=== PATIENT | female | born 1970 | race Caucasian/White ===

== ENCOUNTER 2022-04-06 07:01 | Inpatient (IN) ==
[2022-04-02 12:38] LABS: Basophils # (Auto) 0.05 K/mcL (0.00-0.30); Eosinophils # (Auto) 0.25 K/mcL (0.00-0.70); Hematocrit 32.9 % (34.1-44.9); Hemoglobin 10.3 g/dL (11.2-15.7); Lymphocytes # (Auto) 1.52 K/mcL (1.50-4.80); Lymphocytes % (Auto) 30.2 % (15.5-49.0); Mean Corpuscular HGB Conc 31.3 g/dL (31.0-36.0); Mean Platelet Volume 9.8 fL (7.4-10.4); Monocytes # (Auto) 0.52 K/mcL (0.10-0.90); Monocytes % (Auto) 10.3 % (1.0-12.0); Neutrophils % (Auto) 53.5 % (38.0-78.0); Platelet Count 290 K/mcL (140-440); RBC 4.01 M/mcL (3.59-5.38); Red Cell Distribution Width 15.9 % (11.5-14.5)
[2022-04-02 13:09] LABS: Blood Urea Nitrogen 14 mg/dL (6-20); Calcium 10.2 mg/dL (8.6-10.4); Carbon Dioxide 25 mmol/L (22-30); Chloride 104 mmol/L (96-108); Glomerular Filtration Rate 85; Glucose 123 mg/dL (70-105)
[2022-04-02 14:59] LABS: HCG,Serum Negative
--- NOTE | 2022-04-05 20:41 | EKG ---
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
[~2022-04-06 07:01] MED LIST: PIPERACILLIN SODIUM/TAZOBACTAM 3.375 GM in DEXTROSE 5% IN WATER 50 ML IV SCH
--- OUTSIDE RECORDS SUMMARY | 2022-04-06 07:04 | External Medical Summary ---
:1970 Author Care Team Providers Name Role Phone RASHARD SMART TYRESE Dentist [phone] PRISCA GALVAN Primary Care Provider [phone] Allergies Code Code System Name Reaction Severity Status Onset [id number] RxNorm Latex Hives Active Sulfa (Sulfonamide Other Active Antibiotics) Medications Name Status Start Date Stop Date amoxicillin 875 mg-potassium clavulanate 125 mg tablet Active Not available TAKE 1 TABLET BY MOUTH TWICE DAILY aspirin Active Not available 81 mg one tab daily aspirin 81 mg tablet,delayed release Active Not available atorvastatin Completed 12/22/2021 atorvastatin 10 mg tablet Active Not av ailable diclofenac 3 % topical gel Active Not a vailable docusate sodium 100 mg capsule Active N ot available TAKE 1 CAPSULE BY MOUTH ONCE DAILY Effexor XR Completed 12/22/2021 225 mg one tab daily gabapentin 300 mg capsule Completed 2021 hydrocortisone-acetic acid 1 %-2 % ear drops Active Not available hydroxyzine pamoate 50 mg capsule Active Not available lidocaine 5 % topical ointment Active N ot available lidocaine 5 % topical patch Active Not available lisinopril Completed 12/22/2021 10 mg one tab daily lisinopril 10 mg tablet Active Not avai lable lorazepam 1 mg tablet Active Not availa ble M- Plus 27 mg iron-1 mg tablet Active Not available Multiple Vitamins tablet Active Not charles ilable Take 1 tablet every day by oral route. omeprazole Completed 12/22/2021 40 mg one tab twice a day omeprazole 40 mg capsule,delayed release Active Not available ondansetron 4 mg disintegrating tablet Active Not available ondansetron HCl 4 mg tablet Active Not available oxybutynin chloride ER 5 mg tablet,extended release 24 hr Active Not available TAKE 1 TABLET BY MOUTH EVERY DAY ProAir HFA 90 mcg/actuation aerosol inhaler Active Not available Inhale 2 puffs every 4 hours by inhalation route. tramadol 50 mg tablet Active Not availa ble TAKE 1 TABLET BY MOUTH EVERY 8 HOURS NEEDED FOR PAIN trazodone 50 mg tablet Active Not avail able triamcinolone acetonide 0.05 % topical ointment Active Not available triamcinolone acetonide 0.5 % topical ointment Active Not available venlafaxine ER 150 mg capsule,extended release 24 hr Active Not available TAKE 1 CAPSULE BY MOUTH EVERY DAY venlafaxine ER 75 mg capsule,extended release 24 hr Active Not available Notes: 12/22/21 Meds verbally verified with pt/ AN Problems Name Status Onset Date Source Polyarthropathy Active 02/11/2022 Low Back Pain Active 02/11/2022 Procedures Date Name Performed by 03/05/2022 Appendectomy Information not avai lable 03/05/2022 Colonoscopy Information not avai lable Notes: 07/05/2001 Delivery Information not avai lable 12/18/2021 MAMMO, Screening, [facility] [address] [place] [address] [phone] (Work Place) Results Lab Results Date Name Specimen Result Interpretation Description Value Range Status Address 12/22/2021 Lipid Blood High Cholesterol, 264 mg/dL <200 Fin al [facility], venous Total mg/dL Diagnostic s Serum - [place] [facility]: [address] [place] [address] Blood Normal HDL 127 mg/dL > or = Final [facility] venous Cholesterol 50 Diagn ostics mg/dL - [place] [facility]: [address] [place] [address] Blood Normal Triglycerides 128 mg/dL <150 Final [facility] venous mg/dL Diagnostic [facility]: [address] [place] [address] Blood High LDL-cholestero 113 mg/dL Final [facility] venous l (calc) Diagnostic [facility] Lab: [address] [place] [address] Blood Normal Chol/hdlc 2.1 <5.0 Final [facility] venous Ratio (calc) (calc) Diagnostic [facility] Lab: [address] [place] [address] Blood High Non HDL 137 mg/dL <130 Final [facility] venous Cholesterol (calc) mg/dL Diagn ostics (calc) - [place] [facility]: [address] [place] [address] 12/22/2021 CMP, Serum Blood Normal Glucose 84 mg/dL 65-99 Final [facility] or Plasma venous mg/dL Diagnos tics - [place] [facility]: [address] [place] [address] Blood Normal Urea Nitrogen 14 mg/dL 7-25 Final [facility] venous (BUN) mg/dL Diagnostic s - [place] [facility]: [address] [place] [address] Blood Normal Creatinine 0.80 0.50-1 Final [facility] venous mg/dL .05 Diagnostic s mg/dL - [place] [facility]: [address] [place] [address] Blood Normal eGFR Non-afr. 85 > or = Final Qu est venous Nigerian mL/min/1. 60 Diagn ostics 73m2 mL/min - [place] /1.73m Lab: [facility] Blood Normal eGFR 99 > or = Final Que st venous Nigerian mL/min/1. 60 Diagn ostics 73m2 mL/min - [place] /1.73m Lab: [address] [place] [address] Blood BUN/creatinine not 6-22 Final Q uest venous Ratio applicabl (calc) Diagnos tics e (calc) - [place] [facility]: [address] [place] [address] Blood Normal Sodium 139 135-14 Final [facility] venous mmol/L 6 Diagnostic s mmol/L - [place] [facility]: [address] [place] [address] Blood Normal Potassium 4.7 3.5-5. Final [facility] venous mmol/L 3 Diagnostic s mmol/L - [place] [facility]: [address] [place] [address] Blood Normal Chloride 100 98-110 Final [facility] venous mmol/L mmol/L Diagnostic [facility] Lab: [address] [place] [address] Blood Normal Carbon Dioxide 30 mmol/L 20-32 Final [facility] venous mmol/L Diagnostic [facility] Lab: [address] [place] [address] Blood High Calcium 10.5 8.6-10 Final [facility] venous mg/dL .4 Diagnostic s mg/dL - [place] [facility]: [address] [place] [address] Blood Normal Protein, Total 8.0 g/dL 6.1-8. Final [facility] venous 1 g/dL Diagnostic s [facility] Lab: [address] [place] [address] Blood Normal Albumin 4.6 g/dL 3.6-5. Final [facility] venous 1 g/dL Diagnostic [facility] Lab: [address] [place] [address] Blood Normal Globulin 3.4 g/dL 1.9-3. Final [facility] venous (calc) 7 g/dL Diagnostic s (calc) - [place] [facility]: [address] [place] [address] Blood Normal Albumin/globul 1.4 1.0-2. Final Q uest venous in Ratio (calc) 5 Diagnost ics (calc) - [place] [facility]: [address] [place] [address] Blood Normal Bilirubin, 0.2 mg/dL 0.2-1. Final Qu est venous Total 2 Diagnostic s mg/dL - [place] [facility]: [address] [place] [address] Blood Normal Alkaline 52 U/L 37-153 Final [facility] venous Phosphatase U/L Diagn ostics - [place] [facility]: [address] [place] [address] Blood Normal Ast 29 U/L 10-35 Final [facility] venous U/L Diagnostic s [facility] Lab: [address] [place] [address] Blood Normal Alt 18 U/L 6-29 Final [facility] venous U/L Diagnostic s [facility] Lab: [address] [place] [address] 12/22/2021 CBC W/ Auto Blood Normal White Blood 6.7 3.8-10 Fi nal [facility] Diff venous Cell Count thousand/ .8 [facility] uL thousa [facility] nd/uL Lab: [address] [place] [address] Blood Normal Red Blood Cell 4.19 3.80-5 Final Q uest venous Count million/u .10 Diagnos tics L Located within [facility] n/uL Lab: [address] [place] [address] Blood Low Hemoglobin 11.3 g/dL 11.7-1 Final Qu est venous 5.5 Diagnostic s g/dL [facility] Lab: [address] [place] [address] Blood Normal Hematocrit 35.1 % 35.0-4 Final [facility] venous 5.0 % Diagnostic [facility] Lab: [address] [place] [address] Blood Normal Mcv 83.8 fL 80.0-1 Final [facility] venous 00.0 Diagnostic s fL [facility] Lab: [address] [place] [address] Blood Normal Mch 27.0 pg 27.0-3 Final [facility] venous 3.0 pg Diagnostic s [facility] Lab: [address] [place] [address] Blood Normal Mchc 32.2 g/dL 32.0-3 Final [facility] venous 6.0 Diagnostic s g/dL - [place] [facility]: [address] [place] [address] Blood High Rdw 16.3 % 11.0-1 Final [facility] venous 5.0 % Diagnostic s [facility] Lab: [address] [place] [address] Blood Normal Platelet Count 301 140-40 Final Q uest venous thousand/ 0 Diagnos tics uL thousa [facility] nd/uL Lab: [address] [place] [address] Blood Normal Mpv 10.4 fL 7.5-12 Final [facility] venous .5 fL Diagnostic [facility] Lab: [address] [place] [address] Blood Normal Absolute 3980 1500-7 Final [facility] venous Neutrophils cells/uL 800 [facility] cells/ - [place] uL Lab: [address] [place] [address] Blood Normal Absolute 1568 850-39 Final [facility] venous Lymphocytes cells/uL 00 [facility] cells/ - [place] u[facility] Lab: [address] [place] [address] Blood Normal Absolute 824 200-95 Final [facility] venous Monocytes cells/uL 0 Diagn ostics cells/ - [place] uL Lab: [address] [place] [address] Blood Normal Absolute 281 15-500 Final [facility] venous Eosinophils cells/uL cells/ [facility] gnostics [facility] Lab: [address] [place] [address] Blood Normal Absolute 47 0-200 Final [facility] venous Basophils cells/uL cells/ Diagn ostics [facility] Lab: [address] [place] [address] Blood Normal Neutrophils 59.4 % Final Ques t venous Diagnostic [facility] Lab: [address] [facility] Blood Normal Lymphocytes 23.4 % Final Ques t venous Diagnostic [facility] Lab: [address] [place] [address] Blood Normal Monocytes 12.3 % Final [facility] venous Diagnostic [facility] Lab: [address] [place] [address] Blood Normal Eosinophils 4.2 % Final Ques t venous Diagnostic [facility] Lab: [address] [place] [address] Blood Normal Basophils 0.7 % Final [facility] venous Diagnostic [facility] Lab: [address] [place] [address] 12/22/2021 Pap, LB + Cervix [employer]isc [employer] yte HPV Diagnostic s [facility], Anatomic Pathology Lab: [address], [place] Cervix Ppap Incyte Diagnostic s - [place], Anatomic Pathology Lab: [address], [place] Cervix Spec Incyte Diagnostic s [facility], [facility] Lab: [address], [place] Cervix Ln Incyte Diagnostic s - [place], Anatomic Pathology Lab: [address], [place] Cervix Apfdx Incyte Diagnostic s - [place], Anatomic Pathology Lab: [address], [place] Cervix Apmpr Incyte Diagnostic s - [place], Anatomic Pathology Lab: [address], [place] Cervix Aptech Incyte Diagnostic s - [place], Anatomic Pathology Lab: [address], [place] Cervix Apspa Incyte Diagnostic s - [place], Anatomic Pathology Lab: [address], [place] Cervix Apadn Incyte Diagnostic s - [place], Anatomic Pathology Lab: [address], [place] Cervix Applab Incyte Diagnostic s - [place], Anatomic Pathology Lab: [address], [place] Cervix Apsig Incyte Diagnostic s - [place], Anatomic Pathology Lab: [address], [place] 12/18/2021 Alcohol Use Women (18-65) 1 or More Norman And Disorders How Many Times [facility] Identificat in the past Center: Fernando ion Test* Year Have You Health 1203 Had 4 or More Ayanna ho Drinks in a Stree t, Day? Gilbert AU1. How Often [4 L ewis And Do You Have a points] 4 [facility] Drink or more Center: C has Containing times a Healt h 1203 Alcohol? week [place] Gilbert Hoffman AU2. How Many [3 Le wis And Drinks points] 7 [facility] Containing to 9 Center : Fernando Alcohol Do You He alth 1203 Have on a [place] Typical Day Stree t, When You Are Lewi ston Drinking? AU3. How Often [4 L ewis And Do You Have 5 points] Cl [facility] or More Drinks Daily or Center: Fernando on One [facility] Health 120 3 Occasion? daily [place] Gilbert Hoffman AU4. Have You [4 Le wis And Found That You points] C [facility] Neul Were Not Able Daily or C enter: Fernando to Stop almost Health 12 03 Drinking Once daily Ayanna ho You Had Street, Started? Gilbert AU5. Have You [4 Le wis And Failed to Do points] [facility] What Was Daily or Center : Fernando Normally almost Health 1 203 Expected from daily Ayanna ho You Because of St reet, Drinking? Emerson n AU6. Needed a [4 Le wis And 1St Drink in points] [facility] the Morning to Daily or Center: Fernando Get Yourself almost Heal 1203 Going after a daily Ayanna ho Heavy Drinking St reet, Session? Gilbert AU7. Have You [4 Le wis And Had a Feeling points] [facility] of Guilt or Daily or Jamir ter: Fernando Remorse after almost Hea lth 1203 Drinking? daily [place] Gilbert Hoffman AU8. Have You [0 Le wis And Been Unable to points] [facility] Remember What Never Jamir ter: Fernando Happened the Heal 1203 Night before Idah o Because of Your S treet, Drinking? Emerson lopez AU9. Have You [0 Le wis And or Someone Else points] [facility] Been Injured No Cent er: Fernando Because of Your H ealth 1203 Drinking? [place] Gilbert Hoffman AU10. Has a [4 Lewi s And Relative, points] [facility] Friend, Doctor, Yes, C enter: Fernando or Healthcare during Hea lth 1203 Worker Been the last Ayanna ho Concerned or year Stre et, Suggested You Garth bolton Cut Down? Total Points 27 Garth is And (Must Be [facility] alth Manually Center: [facility] Calculated Health 1203 Using Points Idah o from Questions St reet, AU1-AU10 Only) Melisa lópez Guideline for 20-40 Le wis And Interpretation Points - [facility] Zone IV - Center: [facility] Severe - Health 1 203 Brief [facility] shaun Hoffman plus Gilbert referral to chemical dependenc y treatment 12/18/2021 Substance Q1: past 3 [0 Norman And Abuse Months, Overuse points] [facility] Screening* of Prescribed No Center: [facility] Opioids Health 12 03 Gilbert Chatman Q2: past 3 [0 Norman And Months, Use of points] [facility] Any Opioids NOT No C enter: [facility] Prescribed Health 1203 Gilbert Chatman Scoring (a [0] No Norman And Positive Score Cl [facility] Health Is > 0): Center: [facility] Health 120 3 Gilbret Chatman Past Encounters 03/24/2022 [place] Pe[place]ock [facility]: [address] [facility] [place] [address], Ph. 02/11/2022 Low Back Pain; Spasm; Polyarthropathy; A lcohol Dependence; Anxiety; Tobacco Dependence Syndrome PRISCA Galvan: [facility] [place] [address], Ph. 12/22/2021 Gynecologic Examination; Dyslipidemia; E ssential Hypertension; Mixed Anxiety and Depressive Disorder; Urinary Incontinence; Tobacco Dependence Syndrome PRISCA Galvan: [facility] [place] [address], Ph. 12/18/2021 Schwartz's Esophagus; Asthma; Eczema; Ski n Lesion; Alcohol Dependence; Tobacco Dependence Syndrome; Active or Passive Immunization; Screening for Malignant Neoplasm of Breast PRISCA Galvan: [address] [place] [address], Ph. 12/18/2021 Screening Procedure; Diabetes Mellitus S creening; Alcohol Consumption Screening; Screening for Malignant Neoplasm of Colon; Screening Due; Screening Mammography; Active or Passive Immunization; Hepatiti s C Screening Declined; Body Mass Index 20-24 - Normal; Low Income; Tobacco Dependence Syndrome; HIV Screening Declined Kristin Ramos RN: [address] [place] [address], [place] [address], Ph. 12/08/2021 Rashard Smart DDS: [address] [place] [phone], Ph. Social History Tobacco Smoking Status Heavy Tobacco Smoker (1 pack per day) Vaccine List Vaccine Type COVID-19 vaccine, vector-nr, rS-Ad26, PF , 0.5 mL (Studio[employer]) .5 influenza, injectable, quadrivalent, pre servative free .5 influenza, recombinant, quadrIvalent,inj ectable, preservative free .5 influenza, seasonal, injectable 09/13/2007 pneumococcal polysaccharide PPV23 .5 mL Tdap 09/13/2007.5 06/08/2020 zoster recombinant .5 Plan of Care Patient Instructions [place] and floss 2-3 times daily Eat a balanced diet Limit soda/sports drinks consumption to lower your risk of tooth decay Recommend desensitizing toothpaste for s ensitivity Recommend OTC fluoride rinse (ACT or oth ers) Use a soft bristle toothbrush Follow up with your hygienist Reminders Provider Appointments None recorded. Lab None recorded. Referral None recorded. Procedures None recorded. Surgeries None recorded. Imaging None recorded. Vitals 02/11/2022 03:20PM Office Visit 20 Height Weight BMI Blood Pressure 5 ft 8.6 in 163 lbs 24.4 kg/m2 136/78 mm[Hg] 12/22/2021 08:40AM Office Visit 20 Height Weight BMI Blood Pressure 5 ft 8.6 in 160 lbs 16 oz 24.1 kg/m2 102/60 mm[Hg] 12/18/2021 02:00PM New Patient Visit Height Weight BMI Blood Pressure 5 ft 8.6 in 163 lbs 9.6 oz 24.4 kg/m2 110/58 mm[Hg] 12/18/2021 01:20PM New Patient Visit Height Weight BMI 5 ft 8.6 in 163 lbs 9.6 oz 24.4 kg/m2 12/08/2021 01:45PM Adult Dental Exam Blood Pressure 113/70 mm[Hg]
--- OUTSIDE RECORDS SUMMARY | 2022-04-06 07:04 | External Medical Summary | Encounter Summary ---
:1970 Author Care Team Providers Name Role Phone PRISCA Gomes Primary Care Provider [phone] Zurdo Sal DDS Dentist [phone] Reason for Visit None recorded. Assessment and Plan 1. Low back pain patient is inquiring about a chiropract or referral. Advised her that chiropractic sore after not covered under her insurance. Patient states that she will call around and see if there is someone that c an see her. She will let us know she nee ds referral sent to them. Will have her try transdermal lidocaine As needed. Patient was started on gabapentin For m uscle spasms while in inpatient treatment but does not feel helps. Will have her discontinue the gabapentin. Patient can follow-up as needed. lidocaine 5 % topical patch 2. Spasm As mentioned above. 3. Polyarthropathy Patient has generalized polyarthralgia. will have her use diclofenac gel and topical lidocaine as needed. She can follow-up after a month if ther e is no reasonable improvement with her pain. diclofenac 3 % topical gel lidocaine 5 % topical ointment 4. Alcohol dependence Patient successfully completed an [facility] alcohol treatment program she is doing very well. Will have her take a multivitamin every day to maintain vitamin levels. She can follow-up in 6 months. Multiple Vitamins tablet 5. Anxiety patient has been on 225 mg of venlafaxi ne. Now that she has been through alcohol treatment she feels a lot of her stress is improving and would like to reduce the dose back to 150 mg that she was taking. Decrease venlafaxine to 150 mg daily. Follow-up in 3 months. Portions of this report may have been created with voice recognition software. Efforts were made to ensure accuracy, but wrong-word substitutions or "sound-alike" substitutions may have occurred due to the inherent limitations in this tech nology. 6. Tobacco dependence syndrome As we discussed, stopping tobacco use i s the best thing you can ever do for your health. Please continue to consider stopping and contact us when you are ready. learning about benefits from quitting smoking Discussion Note: None recorded. Plan of Care Reminders Provider Appointments Dental Scaling 04/23/2022 1:30PM Rosaura alicia, [facility] Dental Scaling 05/06/2022 5:00PM Adan russell, [facility] Lab None recorded. Referral None recorded. Procedures None recorded. Surgeries None recorded. Imaging None recorded. Medications Name Start Date amoxicillin 875 mg-potassium clavulanate 125 mg tablet TAKE 1 TABLET BY MOUTH TWICE DAILY aspirin 81 mg one tab daily aspirin 81 mg tablet,delayed release atorvastatin 10 mg tablet TAKE 1 TABLET BY MOUTH EVERY DAY diclofenac 3 % topical gel APPLY TO LESION AREAS BY TOPICAL ROUTE 2 TIMES PER DA Y docusate sodium 100 mg capsule TAKE 1 CAPSULE BY MOUTH ONCE DAILY hydrocortisone-acetic acid 1 %-2 % ear drops INSTILL 2 DROPS INTO AFFECTED EAR(S) BY OTIC ROUTE 2 TIMES PER DAY NEEDED hydroxyzine pamoate 50 mg capsule lidocaine 5 % topical ointment APPLY TO AFFECTED AREA(S) BY TOPICAL ROUTE 1-4 TIMES DAILY NEEDED lidocaine 5 % topical patch APPLY 1 PATCH BY TOPICAL ROUTE ONCE DAILY (MAY WEAR U P TO 12HOURS.) lisinopril 10 mg tablet TAKE 1 TABLET BY MOUTH EVERY DAY lorazepam 1 mg tablet M- Plus 27 mg iron-1 mg tablet Multiple Vitamins tablet Take 1 tablet every day by oral route. omeprazole 40 mg capsule,delayed release Take 1 capsule twice a day by oral route. ondansetron 4 mg disintegrating tablet ondansetron HCl 4 mg tablet oxybutynin chloride ER 5 mg tablet,extended release 24 hr TAKE 1 TABLET BY MOUTH EVERY DAY ProAir HFA 90 mcg/actuation aerosol inhaler Inhale 2 puffs every 4 hours by inhalation route. tramadol 50 mg tablet TAKE 1 TABLET BY MOUTH EVERY 8 HOURS NEEDED FOR PA IN trazodone 50 mg tablet triamcinolone acetonide 0.05 % topical ointment triamcinolone acetonide 0.5 % topical ointment APPLY A THIN LAYER TO THE AFFECTED AREA(S) BY TOPICAL ROUTE 2 TIMES PER DAY venlafaxine ER 150 mg capsule,extended release 24 hr TAKE 1 CAPSULE BY MOUTH EVERY DAY venlafaxine ER 75 mg capsule,extended release 24 hr Notes: 12/22/21 Meds verbally verified with pt/ AN Medications Administered None recorded. Vitals Height Weight BMI Blood Pressure 5 ft 8.6 in 163 lbs 24.4 kg/m2 136/78 mm[Hg] Results Lab Results None recorded. Allergies Code Code System Name Reaction Severity Onset 2961957 RxNorm Latex Hives Sulfa (Sulfonamide Antibiotics) Other Problems Name Status Onset Date Source Polyarthropathy Active 02/11/2022 Low Back Pain Active 02/11/2022 Procedures Date Name Performed by 03/05/2022 Appendectomy Information not avai lable 03/05/2022 Colonoscopy Information not avai lable Notes: 07/05/2001 Delivery Information not avai lable Vaccine List Vaccine Type COVID-19 vaccine, vector-nr, rS-Ad26, PF , 0.5 mL ([employer] .5 influenza, injectable, quadrivalent, pre servative free .5 influenza, recombinant, quadrIvalent,inj ectable, preservative free .5 influenza, seasonal, injectable 09/13/2007 pneumococcal polysaccharide PPV23 .5 mL Tdap 09/13/2007 11/26/20160.5 06/08/2020 zoster recombinant .5 Social History Tobacco Smoking Status Heavy Tobacco Smoker (1 pack per day) Have you had all your required Y vaccines including measles and the flu shot? Do you have high or low blood Y pressure? Do you have a pacemaker or N artificial heart valve implant? Can you walk up a flight of Y stairs without stopping to rest? When was your last physical 12/31/2018 exam? How much tobacco do you chew? none What is the highest level of High school diploma or GED school that you have finished? In the past year have you or Y any of your family members been unable to access INTERNET when it was really needed? In the past year have you or No any of your family members been unable to get MEDICINE or HEALTH CARE when it was really needed? In the past year have you or No any of your family members been unable to get PLANT GENERAL MANAGER when it was really needed? Has lack of transportation kept Yes it has kept me from you from medical appointments, medical and non-medical meetings, work, or from getting appointments things needed for daily living? Are you HIV positive? If yes, N cd4 count Viral load Have you ever had surgery, N radiation treatment, or chemo therapy for a tumor, or any other condition? Do you use your seat belt or Y car seat routinely? Are you or expect you N may be? Last fluoride treatment 11/11/2005 Have you had any serious Y illness or operation? Are there any guns present in N your home? Do you or have you had TB? N How many children do you have? 3 Have you ever taken oral or IV N bisphosphonates? Do you have any STD's? If yes, N what type? Has tobacco cessation Y counseling been provided? Have you ever had Hepatitis? If N yes, A, B, or C (sun'aq)? Have you ever had Jaundice? How many drinks per day? 6 What was the date of your most 02/11/2022 recent tobacco screening? Do you have an advanced N directive? Is there anything we should N know about your mental health? Preferred Pharmacy [facility] in [facility] (PISQ ask Annually): Do N/A you want to get in the next year? Do you have any inflammatory N disease such as arthritis? What is your exercise level? Moderate If the answer is yes do you N need to be connected to behavioral health services? Do you have any history of head N and/or neck radiation? Do you feel physically and Yes emotionally safe where you currently live? Is there anything else we N should know about your health? In the past year have you or Y any of your family members been unable to access healthcare because of lack of a computer, tablet, smartphone, etc when it was really needed? Cannabis Use? N PRAPARE Screening Completed on: 12/18/2021 Hookah use? N Do you have artificial N joints/prosthesis? Does the patient have social Y needs that need to be addressed? What type of diet are you REGULAR following? Are you able to care for Y yourself? In the past year, have you been Yes Notes: Ex partner whom afraid of your partner or does not know where she ex-partner? is. Are you under a physician's Y care? Have you ever bled excessively N after being injured? Physician/Doctor's Name Dr. Jarek Ashley What is your level of alcohol Heavy Notes: h as an upcoming consumption? Inpatient at [facility] in [place] Race/Ethnicity Which illicit or recreational None drugs have you used? Current End Method (PISQ) No method- other reason (same sex partner/menopausal/infertile) Do you have blood disorders, N such as anemia, leukemia? Have you ever been treated for N osteoporosis? Are you passively exposed to N smoke? Do you or have you ever used N any other forms of tobacco or nicotine? Have you had any recent travel? N Are you using any street drugs? N In the past year have you or Yes any of your family members been unable to get FOOD when it was really needed? Intention (PISQ) Date 12/18/2021 Asked Are you diabetic? If yes, what N type? Last checked glucose? Do you have smoke and carbon N monoxide detectors in your home? In the past year, have you No spent more than 2 nights in a row in a penitentiary, assisted, mcfp center, or juvenile correctional facility? Have you been treated for or Y told you might have heart disease? If yes please list , Ganglion Cyst removal, Do you use sunscreen routinely? Y Do you or have you ever used Never used electronic e-cigarettes or vape? cigarettes How many years have you 30 consumed alcohol? Do you use any illicit or N recreational drugs? How many years have you smoked 35 tobacco? Do you use marijuana? How much? N In the past year have you or Yes any of your family members been unable to get OTHER NECESSITIES when it was really needed? When was your last dental 11/11/2005 cleaning? In the past year have you or Yes any of your family members been unable to get a PHONE when it was really needed? How stressed are you? Quite a bit Do you or have you ever used [id number] smokeless tobacco? On what date was tobacco 02/11/2022 cessation counseling provided? Do you have asthma? N Are you sexually active? Y Do you use protection during No sex? What is your level of caffeine Moderate consumption? Are you worried about losing Yes your housing? Do you consume alcoholic Y beverages? How often do you see or talk to Less than once a week people that you care about and feel close to? (Ex: talking to friends on the phone, visiting friends/family, going to buddhism or club meetings) What is your current work Unemployed situation? In the past year have you or No any of your family members been unable to get UTILITIES when it was really needed? Do you have epilepsy or seizure N disorders? Are you aware of any heart N murmurs? In the past year have you or Yes any of your family members been unable to get CLOTHING when it was really needed? Family History Relation Problem Onset Age of Age Notes Father Ulcerative colitis (No N/A (No Notes ) Information) Mother Esophagitis (No N/A barretts Information) Mother Malignant melanoma (No N/A (No Notes ) Information) Mother Sleep disorder 45 N/A (No Notes) Mother Disorder of thyroid 51 N/A (No Note s) gland Maternal Aunt Malignant tumor of 42 N/A (No Note s) breast Maternal Aunt Malignant neoplastic 42 N/A (No No justin) disease Paternal Grandfather Myocardial infarction (No N/A (No Notes) Information) Son Anxiety disorder 1 N/A (No Notes) Son Anxiety disorder 10 N/A (No Notes) Paternal Aunt Osteoporosis 48 N/A (No Notes) Functional Status Unknown. Past Encounters 02/11/2022 Low Back Pain; Spasm; Polyarthropathy; A lcohol Dependence; Anxiety; Tobacco Dependence Syndrome PRISCA Gomes: [facility] [place] [address], Ph. History of Present Illness Note: Vision concern: Patient is worried she may have cataracts developing in the right eye. She states she has some visual impaired in the right eye with floaters. She denies any pain or erythema.<div&gt ;
</div><div>Lowback and sacral pain: Patient is wanting a referral to see a chiropractor. She has lot of chronic low back pain and sacral pain. In the past she has seen a chiropractor it is really helped. Patient states that while she was in rehab they put her on gabapentin to help with her back pain. She does not really feel it has helped much. She was having a lot of muscle spasms in her low back and legs.</div><div>
</div><div>Patient states from Feb through the first of February she was in an inpatient alcohol rehab program. During this. She was more sedentary than her baseline. She states with the lack of movement she has been having pain inboth hands and wrists, both knees, and both hips. Patient states that she has always had a lot of joint pain but it has been getting worse. She denies any joint erythema or swelling. She has wondered if there was something she due for the pain that is not systemic. She is limited in what she is able to take.</div><div>
</div><div> Anxiety: Patient was taking 225 mg ofvenlafaxine. The dose was increased due to increased anxiety. Now that she has been through alcohol treatment her anxiety is improving. She is inquiring about reducing her dose back to 150 mg. She has t olerated that dose well for some time.</div>Review of Systems: ROS as noted in the HPI Review of Systems None recorded. Physical Exam General Adult Exam - Female, Musculoskeletal and Joint Exam Reported By: Patient Constitutional: General Appearance: healthy- appearing, well-nourished, well-developed. Level of Dis tress: NAD. Ambulation: ambulating normally Psychiatric: Insight: good judgement. Men isidra Status: active and alert, normal mood, normal affect. Orienta tion: to time, to place, to person. Memory: recent memory normal , remote memory normal Lungs: Respiratory effort: no dyspn ea. Auscultation: breath sounds normal, good air movement, no wheezi ng, no rales/crackles, no rhonchi Cardiovascular: Heart Auscultation: RRR, nor mal S1, normal S2, no murmurs, no rubs, no gallops Musculoskeletal:: Motor Strength and Tone: nor mal motor strength, normal tone. Joints, Bones, and Muscles: normal movement of all extremities, no tenderness. Extremities: no cyanosis, no edema
--- OUTSIDE RECORDS SUMMARY | 2022-04-06 07:04 | External Medical Summary | Encounter Summary ---
:1970 Author Care Team Providers Name Role Phone PRISCA Gomes Primary Care Provider [phone] Zurdo Sal DDS Dentist [phone] Reason for Visit None recorded. Assessment and Plan None recorded.Discussion Note: None recorded.Patient educational handouts: No information available. Plan of Care Reminders Provider Appointments Dental Scaling 04/23/2022 1:30PM Rosaura alicia, [facility] Dental Scaling 05/06/2022 5:00PM Adan russell [facility] Lab None recorded. Referral None recorded. Procedures [...] PATCH BY TOPICAL ROUTE ONCE DAILY (MAY U P TO 12HOURS.) lisinopril 10 mg tablet TAKE 1 TABLET BY MOUTH EVERY DAY lorazepam 1 mg tablet M-Onel Plus 27 mg iron-1 mg tablet Multiple [...] pt/ AN Medications Administered None recorded. Vitals None recorded. Results Lab Results None recorded. Allergies Code Code System Name Reaction Severity Onset 5049797 RxNorm Latex Hives Sulfa (Sulfonamide Antibiotics) Other Problems Name Status Onset Date Source Polyarthropathy Active 02/11/2022 Low Back Pain Active 02/11/2022 Procedures Date Name Performed by 03/05/2022 Appendectomy Information not avai lable 03/05/2022 Colonoscopy Information not avai lable Notes: 07/05/2001 Delivery Information not avai lable Vaccine List Vaccine Type COVID-19 vaccine, vector-nr, rS-Ad26, PF , 0.5 mL ([employer]) .5 influenza, injectable, quadrivalent, pre servative free [...] your family members been unable to get MANAGED SERVICES CONSULTANT when it was really needed? Has lack [...] If N yes, A, B, or C (emmonak)? Have you ever had Jaundice? How many drinks per day? 6 What was the date of your most 02/11/2022 recent tobacco screening? Do you have an advanced N directive? Is there anything we should N know about your mental health? Preferred Pharmacy [facility] in [place] (PISQ ask Annually): Do N/A you want [...] h as an upcoming consumption? Inpatient at [facility] in [place] Race/Ethnicity Which illicit or recreational None drugs [...] 2 nights in a row in a usp, mcfp, custodial center, or juvenile correctional facility? Have you [...] Do you or have you ever used [id number] smokeless tobacco? On what date was tobacco [...] on the phone, visiting friends/family, going to restoration or club meetings) What is your current [...] (No Notes) Functional Status Unknown. Past Encounters 03/24/[address]: [address] [place] [phone], Ph. History of Present Illness None recorded. Review of Systems None recorded. Physical Exam None recorded.
[2022-04-06] MEDS ORDERED: 0.9 % SODIUM CHLORIDE 250 ML IV SCH (08:15)
[2022-04-06] MEDS ORDERED: PHENYLephrine 1 MG/10 ML SYRINGE (ANEST) ONE (09:37)
[2022-04-06] MEDS ORDERED: SUCCINYLCHOLINE 20 MG/ML ML IV ONE (09:37)
[2022-04-06] MEDS ORDERED: fentaNYL 250 MCG/5 ML VIAL IV ONE (09:37)
[2022-04-06] MEDS ORDERED: SUGAMMADEX SODIUM 200 MG/2 ML VIAL IV ONE (09:37)
[2022-04-06] MEDS ORDERED: ROCURONIUM 10 MG/ML ML IV ONE (09:37)
[2022-04-06] MEDS ORDERED: KETAMINE 50 MG/ML Syringe (ANEST) IV ONE (09:37)
[2022-04-06] MEDS ORDERED: ONDANSETRON 4 MG/2 ML VIAL ONE (09:37)
[2022-04-06] MEDS ORDERED: LIDOCAINE HCL/PF 100 MG/5 ML SYRINGE IV ONE (09:37)
[2022-04-06] MEDS ORDERED: DEXAMETHASONE 10 MG/ML VIAL ONE (09:37)
[2022-04-06] MEDS ORDERED: ROPIVACAINE HCL/PF 30 ML VIAL IJ ONE (09:37)
[2022-04-06] MEDS ORDERED: GLYCOPYRROLATE 0.2 MG/ML VIAL IV ONE (09:37)
[2022-04-06] MEDS ORDERED: MIDAZOLAM 5 MG/5 ML VIAL ONE (09:37)
[2022-04-06] MEDS ORDERED: MAGNESIUM SULFATE 2 GM/50 ML BAG IV ONE (09:37)
[2022-04-06] MEDS ORDERED: HYDROmorphone 1 MG/ML SYRINGE ONE (09:37)
[2022-04-06] MEDS ORDERED: PROPOFOL 200 MG/20 ML VIAL IV ONE (09:37)
[2022-04-06] MEDS ORDERED: KETOROLAC 30 MG/ML VIAL IV PRN (13:11)
[2022-04-06] MEDS ORDERED: ONDANSETRON 4 MG/2 ML VIAL IV PRN ×2 (13:11→13:17)
[2022-04-06] MEDS ORDERED: ACETAMINOPHEN 1,000 MG/100 ML BAG IV ONE (13:11)
[2022-04-06] MEDS ORDERED: METOCLOPRAMIDE 10 MG/2 ML VIAL IV PRN (13:11)
[2022-04-06] MEDS ORDERED: MEPERIDINE 25 MG/ML VIAL IV PRN (13:11)
[2022-04-06] MEDS ORDERED: IPRATROPIUM/ALBUTEROL 3 ML AMPUL.NEB NEB PRN (13:11)
[2022-04-06] MEDS ORDERED: METHOCARBAMOL 1,000 MG/10 ML VIAL IV PRN (13:11)
[2022-04-06] MEDS ORDERED: HYDROmorphone 1 MG/ML SYRINGE IV PRN (13:17)
[2022-04-06] MEDS: fentaNYL 100 MCG/2 ML VIAL IV PRN ×4 (13:24→13:57)
[2022-04-06] MEDS: LABETALOL 5 MG/ML ML IV PRN ×2 (13:39→13:46)
--- NOTE | 2022-04-06 13:44 | XRay Report ---
INDICATION: ng tube confirmation TECHNIQUE: Supine abdomen. COMPARISON: Previous CT scans dated 03/04/2022, 03/23/2022 FINDINGS:Skin medhat in a vertical incision in the right side of the abdomen. There is a drainage catheter in the right lower quadrant. There is an esophagogastric tube in the stomach. Sidehole of the catheter is at approximately the gastroesophageal junction. Bowel gas pattern is unremarkable. Patient is status post right colectomy. IMPRESSION: 1. Esophagogastric tube within the stomach. Sidehole of the catheter is at the esophagogastric junction 2. Postsurgical abnormalities with drainage catheter in the right lower quadrant. Skin medhat are present in a vertical incision. Interpreted and Authenticated by: Brian Fall 04/06/22
[2022-04-06] MEDS: 0.9 % SODIUM CHLORIDE 10 ML SYRINGE IV SCH ×2 (15:06→20:32)
[2022-04-06] MEDS: PIPERACILLIN SODIUM/TAZOBACTAM 3.375 GM in DEXTROSE 5% IN WATER 50 ML IV SCH ×2 (15:20→23:59)
--- NOTE | 2022-04-06 15:20 | Brief Operative Note ---
Brief Operative Note Date of procedure: 04/06/22 Pre-op diagnosis: Appendicial Goblet Cell Adenocarcinoma Post-op diagnosis: same Procedure: Right Colectomy Grafts/Implants: No Anesthesia: GETA Findings: Normal appearing Right Colon, no discernible adenopathy noted Complications: none Surgeon: Ted Goldberg Estimated blood loss (cc): 50 Specimens Removed/Pathology: other (Right Colon ) Condition: stable Disposition: PACU
[2022-04-06] MEDS: HYDROmorphone PCA 30 MG/30 ML PCA.VIAL IV PRN (16:20)
[2022-04-06] MEDS: DEXTROSE 5%-LR 1,000 ML IV SCH (17:38)
[2022-04-06] MEDS: ALBUTEROL SULFATE 200 PUFF INHALER INH SCH (23:58)
[2022-04-07] MEDS: ALBUTEROL SULFATE 200 PUFF INHALER INH SCH ×6 (01:50→19:57)
[2022-04-07] MEDS: DEXTROSE 5%-LR 1,000 ML IV SCH ×4 (02:24→20:45)
[2022-04-07] MEDS: 0.9 % SODIUM CHLORIDE 10 ML SYRINGE IV SCH ×3 (05:36→20:48)
[2022-04-07] MEDS: 0.9 % SODIUM CHLORIDE 250 ML IV SCH ×2 (06:08→19:50)
[2022-04-07 06:34] LABS: Basophils # (Auto) 0.03 K/mcL (0.00-0.30); Basophils % (Auto) 0.4 % (0.0-2.0); Eosinophils # (Auto) 0.06 K/mcL (0.00-0.70); Eosinophils % (Auto) 0.7 % (0.0-7.0); Hematocrit 31.1 % (34.1-44.9); Hemoglobin 9.5 g/dL (11.2-15.7); Lymphocytes # (Auto) 1.49 K/mcL (1.50-4.80); Lymphocytes % (Auto) 17.4 % (15.5-49.0); Mean Cell Volume 83.8 fL (80.0-100.0); Mean Corpuscular HGB Conc 30.5 g/dL (31.0-36.0); Mean Platelet Volume 9.7 fL (7.4-10.4); Monocytes # (Auto) 0.89 K/mcL (0.10-0.90); Monocytes % (Auto) 10.4 % (1.0-12.0); Neutrophils % (Auto) 71.1 % (38.0-78.0); Platelet Count 270 K/mcL (140-440); RBC 3.71 M/mcL (3.59-5.38); Red Cell Distribution Width 15.9 % (11.5-14.5); WBC 8.6 K/mcL (4.5-11.0)
[2022-04-07] MEDS: PIPERACILLIN SODIUM/TAZOBACTAM 3.375 GM in DEXTROSE 5% IN WATER 50 ML IV SCH (07:00)
[2022-04-07 07:15] LABS: Blood Urea Nitrogen 10 mg/dL (6-20); Calcium 9.2 mg/dL (8.6-10.4); Carbon Dioxide 29 mmol/L (22-30); Chloride 103 mmol/L (96-108); Glomerular Filtration Rate 73; Glucose 129 mg/dL (70-105)
--- NOTE | 2022-04-07 10:59 | General Surgery Progress Note ---
SUBJECTIVE Subjective Patient information: Note initiated : 04/07/22 at 10:57 am Service Date, if different from initiated Date: [] Patient: RockyFebruary 52 y/o F admitted on 04/06/22 for Right Colectomy. Chief Complaint: [POD#1 Right Colectomy] Pain remains an issue, otherwise doing ok, denies any SOB or chest pain Constitutional Vitals: Vital Signs Temp Pulse Resp BP Pulse Ox 99.3 F H 85 13 124/84 98 04/07/22 07:46 04/07/22 07:46 04/07/22 07:46 04/07/22 07:46 04/07/22 07:46 Period Temp Pulse Resp BP Sys/Rockwell Pulse Ox Last 24 Hr 97 F-99.3 F 64-98 10-28 124-191/73-126 91-100 Intake and Output 04/06/22 04/07/22 04/07/22 21:59 05:59 13:59 Intake Total 50 1050 Output Total 595 225 Balance -545 825 Weight 166 lb 4.8 oz Intake & Output: Intake & Output 04/06/22 04/07/22 04/07/22 21:59 05:59 13:59 Intake Total 50 1050 Output Total 595 225 Balance -545 825 Weight 166 lb 4.8 oz Intake: IV 50 1050 Dextrose 5%-Lactated Ringers 1, 1000 000 ml @ 125 mls/hr IV .Q8H HANNAH Rx#:[id number] Zosyn 3.375 gm In Dextrose 5% 50 50 in Water 50 ml @ 100 mls/hr IV Q8H HANNAH Rx#:[id number] Tube Feeding 0 Output: Drainage 145 Abdomen 145 Urine Catheter Amount 450 225 Other: Urine Appearance Clear Clear Uretheral (Pagan) Clear Urine Color Bright Yellow Bright Yellow Uretheral (Pagan) Bright Yellow Urine Odor Normal Exam: she looks well, appears non toxic Respiratory Additional comments: no respiratory distress, non labored Cardiovascular Cardiovascular exam: Present normal rate and rhythm GI/Abdominal Additional comments: belly soft and non distended, dressing has some dried blood soaked through but othewise appears intact, drain is serogang. NGT in place Extremities Exam Additional comments: well perfused A/P Assessment and plan (1) Primary appendiceal adenocarcinoma: Status: Acute Plan POD #1 Right Colectomy Doing ok with some pain issues Will add Toradol Increase activity OK for sips/chips/etc Time Spent With Patient Time: Total time spent is greater than 50% in coordination of care (as documented) at patient's floor/unit and/or counseling patient:
[2022-04-07] MEDS: KETOROLAC 30 MG/ML VIAL IV SCH ×2 (11:39→19:53)
[2022-04-07] MEDS ORDERED: ACETIC ACID BOTH EARS PRN (17:26)
[2022-04-07] MEDS ORDERED: HYDROCORTISONE BOTH EARS PRN (17:26)
[2022-04-07] MEDS: ATORVASTATIN 10 MG TABLET PO SCH (19:56)
[2022-04-08] MEDS: ALBUTEROL SULFATE 200 PUFF INHALER INH SCH ×6 (01:30→22:13)
[2022-04-08] MEDS: KETOROLAC 30 MG/ML VIAL IV SCH ×3 (03:19→19:48)
[2022-04-08] MEDS: DEXTROSE 5%-LR 1,000 ML IV SCH ×4 (03:20→18:45)
[2022-04-08] MEDS: 0.9 % SODIUM CHLORIDE 10 ML SYRINGE IV SCH ×3 (04:44→21:04)
[2022-04-08 06:51] LABS: Hematocrit 25.6 % (34.1-44.9); Hemoglobin 7.9 g/dL (11.2-15.7); Mean Corpuscular HGB Conc 30.9 g/dL (31.0-36.0); Mean Platelet Volume 9.8 fL (7.4-10.4); Platelet Count 228 K/mcL (140-440); RBC 3.01 M/mcL (3.59-5.38); Red Cell Distribution Width 15.8 % (11.5-14.5); WBC 7.6 K/mcL (4.5-11.0)
[2022-04-08 07:28] LABS: Blood Urea Nitrogen 5 mg/dL (6-20); Carbon Dioxide 27 mmol/L (22-30); Chloride 103 mmol/L (96-108); Glomerular Filtration Rate 85; Glucose 128 mg/dL (70-105)
[2022-04-08] MEDS ORDERED: PHENOL/SODIUM PHENOLATE 5 SPRAY BOTTLE 180ML SSP PRN (08:20)
[2022-04-08] MEDS: 0.9 % SODIUM CHLORIDE 250 ML IV SCH ×2 (09:00→21:05)
--- NOTE | 2022-04-08 09:47 | General Surgery Progress Note ---
SUBJECTIVE Subjective Patient information: Note initiated : 04/08/22 at 9:42 am Service Date, if different from initiated Date: [] Patient: RockyFebruary 52 y/o F admitted on 04/06/22 for Right Colectomy. Chief Complaint: [POD #2 Right Colectomy] Feeling much improved this am, far less pain. No gas yet. Has been ambulatory. Constitutional Vitals: Vital Signs Temp Pulse Resp BP Pulse Ox 98.7 F 86 18 106/63 94 04/08/22 08:10 04/07/22 12:03 04/08/22 04:00 04/08/22 08:10 04/08/22 08:10 Period Temp Pulse Resp BP Sys/Rockwell Pulse Ox Last 24 Hr 98.2 F-99.2 F 86 12-20 102-124/63-83 92-99 Intake and Output 04/07/22 04/08/22 04/08/22 21:59 05:59 13:59 Intake Total 300 1152 0 Output Total 235 500 Balance 65 652 0 Weight 167 lb 1.6 oz Intake & Output: Intake & Output 04/07/22 04/08/22 04/08/22 21:59 05:59 13:59 Intake Total 300 1152 0 Output Total 235 500 Balance 65 652 0 Weight 167 lb 1.6 oz Intake: IV 300 952 Sodium Chloride 0.9% 250 ml @ 250 20 mls/hr IV .[id number] HANNAH Rx#: [id number] Dextrose 5%-Lactated Ringers 1, 952 000 ml @ 125 mls/hr IV .Q8H HANNAH Rx#:[id number] Zosyn 3.375 gm In Dextrose 5% 50 in Water 50 ml @ 100 mls/hr IV Q8H HANNAH Rx#:[id number] Oral 200 Tube Feeding 0 0 Output: Gastric Drainage 50 Right Nare 50 Drainage 10 75 Abdomen 10 75 Urine Catheter Amount 225 375 Other: Urine Appearance Clear Clear Uretheral (Muñiz) Clear Urine Color Bright Yellow Bright Yellow Uretheral (Muñiz) Bright Yellow Urine Odor Normal Uretheral (Muñiz) Normal Exam: She loosk well, non toxic Respiratory Respiratory exam: Present normal respiratory exam Additional comments: non labored, no distress, using Incentive Spirometer well Cardiovascular Cardiovascular exam: Present normal rate and rhythm GI/Abdominal Additional comments: soft and non tender, non distended, dressing ok, JPD is serosang. Extremities Exam Additional comments: well perfused A/P Assessment and plan (1) Primary appendiceal adenocarcinoma: Assessment and plan: POD #3 Right Colectomy Doing Well Increase Activity Will leave muñiz one more day per her request Re check labs in the AM Status: Acute Time Spent With Patient Time: Total time spent is greater than 50% in coordination of care (as documented) at patient's floor/unit and/or counseling patient:
--- NOTE | 2022-04-08 11:06 | Operative Note ---
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 POSTOPERATIVE DIAGNOSIS: Goblet cell adenocarcinoma of the appendix. OPERATIVE PROCEDURE: Open right colectomy. SURGEON: Ted Goldberg M.D. ANESTHESIA: General. PREOP MEDICATIONS: Zosyn 3.375 grams IV. INDICATIONS FOR PROCEDURE: The patient is a 52-year-old female who presented to the emergency room with acute appendicitis a little over a month ago now. She was taken to the operating room for laparoscopic appendectomy, which was uneventful. She was discovered on final pathology, however, to have a goblet cell adenocarcinoma of the appendix with indications for completion of right colectomy, given the high risk of phyllis metastasis. Options were discussed with her, including the option to undergo observational management, to meet with medical oncology and discuss therapies. In that regard, to undergo additional imaging and scanning and then regarding recommendations, which typically in this situation would entail completion of right colectomy, given the high incidence of occult phyllis metastasis in patients with goblet cell adenocarcinomas of the appendix. She wished to undergo the procedure after full discussion of the risks, benefits, potential complications, and alternative treatment options, all of which were discussed with her at length. She gave full informed consent. PROCEDURE IN DETAIL: The patient was taken to the operating room and placed supine on the OR table, placed under general anesthesia and intubated. All pressure sensitive areas were carefully padded. Bilateral SCDs were applied. A nasogastric tube was placed as well as a Pagan catheter. She was placed in a supine position with arms out on arm boards and all areas of padding and positioning carefully conducted by the OR team in the most optimal fashion possible to make sure all pressure sensitive areas were carefully protected. Her abdomen was then widely prepped and draped in a sterile fashion. Procedure began with a vertical midline incision extending from the mid epigastric region down to just past the umbilicus. We then dissected down through a fairly thick pannus to the abdominal wall fascia, which was opened along the full length of the incision under direct vision. The peritoneum was entered sharply, and this too was extended along the entire length of the incision. We then brought a self-retaining Bookwalter retractor into the field to obtain adequate exposure. We then examined the abdomen. The peritoneal surfaces, the omentum, and the liver were free of any evidence of metastatic disease. We ran the small bowel from the ligament of Treitz to the terminal ileum without significant finding. We then mobilized the right colon up off the retroperitoneum along the white line of Toldt in standard fashion, taking care to stay out of the retroperitoneum, and mobilized the mesocolon and the right colon nicely off the retroperitoneum floor. Once this was fully mobilized, we then superiorly entered the lesser sac and elevated the omentum off the mid transverse colon to the level of the hepatic flexure and then connected these areas of dissection to fully mobilize the hepatic flexure as well. The duodenum was identified and carefully swept down and away and out of harm's way, and the right ureter was identified and swept down and out of the field to make sure it was left undisturbed on the retroperitoneal floor. Once we had this fully mobilized and adequately mobilized, we then freed up the terminal ileum, which was somewhat adherent to its mesentery in the upper pelvis, but this nicely mobilized up into the field as well. We then chose an area roughly 5 cm proximal to the ileocecal valve, circumferentially dissected out the terminal ileum here, and divided this with a single firing of the GURINDER 75 stapler. We then took down the mesocolon utilizing primarily the LigaSure device. The vascular pedicles were taken down with the Endo GURINDER 35 mm vascular stapler including the ileocolic pedicle which was taken just below its takeoff inferior to the duodenum without difficulty. We then took down the bare area of the mesocolon at the hepatic flexure and proximal transverse colon. We identified the right branch of the middle colic artery and took this down as well, preserving the left branch and then divided the transverse colon just above this point with an additional firing of the GURINDER 75 stapler. Thus, the specimen was liberated in its entirety. An orienting suture was placed on the distal margin, and it was sent to pathology for permanent inspection. Next, we irrigated the area out and made sure there was no active bleeding or hemorrhage. There was some mild oozing off the retroperitoneum and some Paula powder was applied as a topical hemostatic, and then this area was temporarily packed off while we made preparations for the anastomosis. The proximal small bowel limb was then brought alongside the distal colonic limb in a xald-ay-[id number] functional end-to-end fashion. Several stay sutures were placed with interrupted 3-0 silk sutures. We then created enterotomies sharply on the antimesenteric staple lines of the respective bowel limbs and then placed the GURINDER 75 stapler into the respective enterotomies to create a [id number] functional end-to-end stapled anastomosis, which came together very nicely without issue. We then inspected internally to make sure there was no active bleeding from the staple line. None was seen. We then reapproximated the sides of the common channel enterotomy and closed this with an additional firing of the GURINDER 75 stapler without difficulty. The staple line was then carefully inspected to assure that it appeared to be fully intact. Staple ends were oversewn with lemberted 3-0 silk sutures and several stay sutures were placed at the crotch of the anastomosis as well to take any tension off the staple line here. The anastomosis was then palpated and found to be widely patent. I elected to not close the mesenteric defect. We then ran the small bowel back to the level of the ligament of Treitz to make sure the orientation was proper, and the anastomosis and the bowel were then allowed to come to rest in their anatomic positions. I elected to bring a drain in through a separate stab incision in the right lower abdomen. It was a 19-Belarusian round HANNA drain positioned and placed in the right pericolic gutter and secured in place with a 3-0 silk suture. The omentum was then positioned back over the anastomosis and the remaining bowel. We made preparations for closure, after removing all packs and making sure that our sponge, needle and instrument counts were correct. They were checked multiple times and found to be correct, and we inspected the area carefully to make sure it, too, did not reveal any retained foreign bodies. Next, we irrigated the area out gently and then made preparations for closure. The wound was closed with a running looped 0 PDS from above and below at the fascial level, which was tied in the midline without difficulty. Great care was taken to make sure the underlying bowel was out of harm's way, which it appeared to be throughout the duration of the closure. The subcutaneous tissues were then extensively irrigated out and the skin was closed with medhat. Bacitracin ointment and a sterile dressing were applied. The patient was awakened, extubated, and transferred to PACU in satisfactory condition with no apparent complications or issues. Sponge, needle and instrument counts were correct. ESTIMATED BLOOD LOSS: Roughly 25 to 50 mL. DRAINS: A single 19-Belarusian round Zoltan drain. FINDINGS: As discussed above. BW:jose Job ID: [id number] Doc ID: [id number] Ted Goldberg M.D. [facility] CENTERJessica
[2022-04-08] MEDS: HYDROmorphone PCA 30 MG/30 ML PCA.VIAL IV PRN (16:44)
[2022-04-08] MEDS: ATORVASTATIN 10 MG TABLET PO SCH (21:04)
[2022-04-09] MEDS: ALBUTEROL SULFATE 200 PUFF INHALER INH SCH ×6 (01:35→22:05)
[2022-04-09] MEDS: KETOROLAC 30 MG/ML VIAL IV SCH (03:10)
[2022-04-09] MEDS: DEXTROSE 5%-LR 1,000 ML IV SCH ×2 (04:53→11:02)
[2022-04-09] MEDS: 0.9 % SODIUM CHLORIDE 10 ML SYRINGE IV SCH ×3 (05:30→22:05)
[2022-04-09 07:07] LABS: Hematocrit 24.6 % (34.1-44.9); Hemoglobin 7.6 g/dL (11.2-15.7); Mean Corpuscular HGB Conc 30.9 g/dL (31.0-36.0); Mean Platelet Volume 10.3 fL (7.4-10.4); Platelet Count 234 K/mcL (140-440); RBC 2.93 M/mcL (3.59-5.38); Red Cell Distribution Width 15.4 % (11.5-14.5); WBC 8.9 K/mcL (4.5-11.0)
[2022-04-09 08:08] LABS: Blood Urea Nitrogen 3 mg/dL (6-20); Calcium 9.1 mg/dL (8.6-10.4); Carbon Dioxide 27 mmol/L (22-30); Chloride 103 mmol/L (96-108); Glomerular Filtration Rate 85; Glucose 107 mg/dL (70-105)
[2022-04-09] MEDS: 0.9 % SODIUM CHLORIDE 250 ML IV SCH ×2 (10:36→20:04)
--- NOTE | 2022-04-09 10:51 | General Surgery Progress Note ---
SUBJECTIVE Subjective Patient information: Note initiated : 04/09/22 at 10:44 am Service Date, if different from initiated Date: [] Patient: RockyFebruary 52 y/o F admitted on 04/06/22 for Right Colectomy. Chief Complaint: [POD #3 Right Colectomy] Passing some gas now, pain control has been good with Toradol, no temps Constitutional Vitals: Vital Signs Temp Pulse Resp BP Pulse Ox 97.5 F 73 18 112/64 97 04/09/22 06:46 04/09/22 06:46 04/09/22 06:46 04/09/22 06:46 04/09/22 06:46 Period Temp Pulse Resp BP Sys/Rockwell Pulse Ox Last 24 Hr 97.5 F-99.9 F 73-94 16-18 108-156/64-84 85-97 Intake and Output 04/08/22 04/09/22 04/09/22 21:59 05:59 13:59 Intake Total 2125 1450 0 Output Total 1400 1400 530 Balance 725 50 -530 Weight 169 lb 3.2 oz Intake & Output: Intake & Output 04/08/22 04/09/22 04/09/22 21:59 05:59 13:59 Intake Total 2125 1450 0 Output Total 1400 1400 530 Balance 725 50 -530 Weight 169 lb 3.2 oz Intake: IV 1974 1250 Sodium Chloride 0.9% 250 ml @ 250 20 mls/hr IV .[id number] [facility] Rx#: [id number] Dextrose 5%-Lactated Ringers 1974 1000 000 ml @ 100 mls/hr IV .Q10H [facility] Rx#:[id number] Oral 200 Tube Feeding 0 0 GI Tube Flush 150 Output: Gastric Drainage 700 875 Right Nare 700 875 Drainage 60 Abdomen 60 Drainage 100 25 70 Abdomen 100 25 70 Urine Catheter Amount 600 500 Void Amount 400 Other: Urine Appearance Clear Clear Clear Uretheral (Pagan) Clear Clear Urine Color Pale Straw Bright Yellow Bright Yellow Uretheral (Pagan) Bright Yellow Bright Yellow Urine Odor Normal Strong General appearance: cooperative and no acute distress Exam: conversant, pleasant, NAD Respiratory Respiratory exam: Present normal respiratory exam Additional comments: non labored with normal effort Cardiovascular Cardiovascular exam: Present RRR GI/Abdominal Additional comments: soft and non tender, non distended, dressing taken down - incision looks very good with some light drainage on incision but no evidence of hematoma or infection drain scant and benign Extremities Exam Additional comments: well perfused A/P Assessment and plan (1) Primary appendiceal adenocarcinoma: Status: Acute Plan POD #3 Right Colectomy Doing Well H/H trending down but suspect largely due to fluid shifts with excellent urine output and no clinical evidence of ongoing blood loss - will hold 2 units of PRBCs in house and re check in am OK for Toradol another 24 hours, no Hep SQ given increased risk of bleeding with synchronous use D/C Pagan and NGT today Clear sips only for now Time Spent With Patient Time: Total time spent is greater than 50% in coordination of care (as documented) at patient's floor/unit and/or counseling patient:
[2022-04-09] MEDS: ACETAMINOPHEN 650 MG/65 ML BAG IV SCH ×2 (11:27→19:04)
[2022-04-09] MEDS: ATORVASTATIN 10 MG TABLET PO SCH (21:15)
[2022-04-10] MEDS: DEXTROSE 5%-LR 1,000 ML IV SCH ×3 (02:48→13:23)
[2022-04-10] MEDS: ALBUTEROL SULFATE 200 PUFF INHALER INH SCH ×6 (02:48→20:29)
[2022-04-10] MEDS: ACETAMINOPHEN 650 MG/65 ML BAG IV SCH ×3 (03:19→19:25)
[2022-04-10] MEDS: 0.9 % SODIUM CHLORIDE 10 ML SYRINGE IV SCH ×3 (05:31→20:29)
[2022-04-10 06:48] LABS: Hemoglobin 8.2 g/dL (11.2-15.7); Mean Corpuscular HGB Conc 31.5 g/dL (31.0-36.0); Mean Platelet Volume 10.1 fL (7.4-10.4); Platelet Count 283 K/mcL (140-440); RBC 3.21 M/mcL (3.59-5.38); Red Cell Distribution Width 14.9 % (11.5-14.5); WBC 8.7 K/mcL (4.5-11.0)
[2022-04-10 07:08] LABS: Blood Urea Nitrogen 3 mg/dL (6-20); Calcium 9.7 mg/dL (8.6-10.4); Carbon Dioxide 28 mmol/L (22-30); Chloride 99 mmol/L (96-108); Glomerular Filtration Rate 100; Glucose 103 mg/dL (70-105)
[2022-04-10] MEDS: 0.9 % SODIUM CHLORIDE 250 ML IV SCH ×2 (09:31→20:29)
--- NOTE | 2022-04-10 11:41 | General Surgery Progress Note ---
SUBJECTIVE Subjective Patient information: Note initiated : 04/10/22 at 11:41 am Service Date, if different from initiated Date: [] Patient: RockyFebruary 52 y/o F admitted on 04/06/22 for Right Colectomy. Chief Complaint: [] Principal diagnosis: Right colectomy Interval history: Patient is 4 days status post right colectomy. She states that she is doing well except for mild discomfort. She is having a small amount of flatus and is tolerating clear liquids. She denies nausea or vomiting. White blood count 8.7, hemoglobin 8.2, hematocrit 26, potassium 3.3, BUN 3, creatinine 0.7. Patient is complaining of heartburn and she has a history of GERD with Schwartz's esophagus. Constitutional Vitals: Vital Signs Temp Pulse Resp BP Pulse Ox 97.3 F 77 18 160/85 95 04/10/22 08:54 04/10/22 08:54 04/10/22 08:54 04/10/22 08:54 04/10/22 08:54 Period Temp Pulse Resp BP Sys/Rockwell Pulse Ox Last 24 Hr 97.3 F-98.8 F 74-82 16-18 137-173/72-92 91-95 Intake and Output 04/09/22 04/10/22 04/10/22 21:59 05:59 13:59 Intake Total 130 1165 100 Output Total 505 823 712 Balance -375 342 -612 Weight 174 lb 4.8 oz Intake & Output: Intake & Output 04/09/22 04/10/22 04/10/22 21:59 05:59 13:59 Intake Total 130 1165 100 Output Total 505 823 712 Balance -375 342 -612 Weight 174 lb 4.8 oz Intake: IV 130 1065 Dextrose 5%-Lactated Ringers 1, 0 1000 000 ml @ 75 mls/hr IV .[id number] [facility] Rx#:[id number] Oral 100 100 Tube Feeding 0 Input, Drain Irrigation Amount 0 Abdomen 0 Output: Drainage 30 98 62 Abdomen 30 98 62 Urine Catheter Amount 400 Void Amount 75 725 650 Other: Urine Appearance Cloudy Clear Clear Uretheral (Pagan) Clear Urine Color Pale Bright Yellow Bright Yellow Uretheral (Pagan) Pale Urine Odor Normal Normal Uretheral (Pagan) Normal Neck Neck exam: Present full ROM and normal inspection Respiratory Respiratory exam: Present normal respiratory exam and CTAB Cardiovascular Cardiovascular exam: Present normal rate and rhythm, RRR, +S1 and +S2; Absent JVD GI/Abdominal GI/Abdominal exam: Present diminished bowel sounds (Hypoactive bowel sounds), distended (Mild distention) and tenderness (Mild tenderness of her incision) Extremities Exam Extremities exam: Present full ROM, normal inspection and neurovascular intact Neurological Exam Neurological exam: Present normal gait and oriented X3; Absent motor sensory deficit Psychiatric Psychiatric exam: Present normal affect and normal mood A/P Assessment and plan (1) Primary appendiceal adenocarcinoma: Status: Acute (2) Barretts esophagus: Status: Acute Plan Patient is clinically stable. She still has hypoactive bowel sounds with some reflux. Restart Prilosec at 40 mg/day Reglan 10 mg IV every 6 hours Potassium rider of 40 mEq IV Check labs in the morning Time Spent With Patient Time: Total time spent is greater than 50% in coordination of care (as documented) at patient's floor/unit and/or counseling patient:
[2022-04-10] MEDS: OMEPRAZOLE 20 MG CAPSULE PO SCH (16:18)
[2022-04-10] MEDS: HYDROmorphone PCA 30 MG/30 ML PCA.VIAL IV PRN (16:45)
[2022-04-10] MEDS: METOCLOPRAMIDE 10 MG/2 ML VIAL IV SCH ×2 (17:12→23:10)
[2022-04-10] MEDS: ATORVASTATIN 10 MG TABLET PO SCH (21:42)
[2022-04-11] MEDS: ALBUTEROL SULFATE 200 PUFF INHALER INH SCH ×7 (01:12→23:17)
[2022-04-11] MEDS: DEXTROSE 5%-LR 1,000 ML IV SCH ×3 (01:12→22:47)
[2022-04-11] MEDS: ACETAMINOPHEN 650 MG/65 ML BAG IV SCH ×3 (03:30→20:12)
[2022-04-11] MEDS: METOCLOPRAMIDE 10 MG/2 ML VIAL IV SCH ×3 (05:34→17:38)
[2022-04-11] MEDS: 0.9 % SODIUM CHLORIDE 10 ML SYRINGE IV SCH ×3 (05:34→21:04)
[2022-04-11 06:21] LABS: Basophils # (Auto) 0.04 K/mcL (0.00-0.30); Basophils % (Auto) 0.5 % (0.0-2.0); Eosinophils # (Auto) 0.43 K/mcL (0.00-0.70); Eosinophils % (Auto) 5.8 % (0.0-7.0); Hematocrit 25.8 % (34.1-44.9); Hemoglobin 8.3 g/dL (11.2-15.7); Lymphocytes # (Auto) 1.14 K/mcL (1.50-4.80); Lymphocytes % (Auto) 15.3 % (15.5-49.0); Mean Cell Volume 81.6 fL (80.0-100.0); Mean Corpuscular HGB Conc 32.2 g/dL (31.0-36.0); Monocytes # (Auto) 1.11 K/mcL (0.10-0.90); Monocytes % (Auto) 14.9 % (1.0-12.0); Neutrophils % (Auto) 63.5 % (38.0-78.0); Platelet Count 301 K/mcL (140-440); RBC 3.16 M/mcL (3.59-5.38); Red Cell Distribution Width 14.8 % (11.5-14.5); WBC 7.4 K/mcL (4.5-11.0)
[2022-04-11 06:54] LABS: ALT/SGPT 7 U/L (<40); AST/SGOT 12 U/L (<32); Albumin 2.8 gm/dL (3.2-5.2); Albumin/Globulin Ratio 1.1 (1.0-2.3); Alkaline Phosphatase 54 U/L (39-117); Bilirubin,Direct < 0.2 mg/dL (0-0.3); Bilirubin,Total 0.2 mg/dL (0.1-1.0); Blood Urea Nitrogen 4 mg/dL (6-20); Calcium 9.4 mg/dL (8.6-10.4); Carbon Dioxide 26 mmol/L (22-30); Chloride 102 mmol/L (96-108); Globulin 2.6 gm/dL (2.2-3.7); Glomerular Filtration Rate 85; Glucose 106 mg/dL (70-105); Lactate Dehydrogenase 125 U/L (135-225); Phosphorous 4.6 mg/dL (2.5-4.5); Triglycerides 126 mg/dL (<150); Uric Acid 5.6 mg/dL (2.5-8.0)
[2022-04-11] MEDS ORDERED: OMEPRAZOLE 20 MG CAPSULE PO SCH (07:30)
[2022-04-11] MEDS: 0.9 % SODIUM CHLORIDE 250 ML IV SCH ×2 (09:09→21:04)
[2022-04-11] MEDS: OMEPRAZOLE 20 MG CAPSULE PO SCH ×2 (09:13→16:28)
--- NOTE | 2022-04-11 11:35 | General Surgery Progress Note ---
SUBJECTIVE Subjective Patient information: Note initiated : 04/11/22 at 11:34 am Service Date, if different from initiated Date: [] Patient: RockyFebruary 52 y/o F admitted on 04/06/22 for Right Colectomy. Chief Complaint: [] Principal diagnosis: Right colectomy Interval history: Patient is clinically stable. She has not been having flatus and she has not had a bowel movement. She does not complain of nausea and she is tolerated clear liquids without difficulty. Abdominal pain is well controlled. White blood count 7.4, hemoglobin 8.3, hematocrit 25.8, potassium 3.5, BUN 4, creatinine 0.8., Magnesium 1.3. Constitutional Vitals: Vital Signs Temp Pulse Resp BP Pulse Ox 97.8 F 75 18 139/89 94 04/11/22 08:45 04/11/22 08:45 04/11/22 08:45 04/11/22 08:45 04/11/22 08:45 Period Temp Pulse Resp BP Sys/Rockwell Pulse Ox Last 24 Hr 97.8 F-98.5 F 69-83 14-18 108-147/64-89 91-96 Intake and Output 04/10/22 04/11/22 04/11/22 21:59 05:59 13:59 Intake Total 465 1265 Output Total 945 665 302 Balance -480 600 -302 Weight 174 lb 12.8 oz Intake & Output: Intake & Output 04/10/22 04/11/22 04/11/22 21:59 05:59 13:59 Intake Total 465 1265 Output Total 945 665 302 Balance -480 600 -302 Weight 174 lb 12.8 oz Intake: IV 65 1065 Dextrose 5%-Lactated Ringers 1, 1000 000 ml @ 75 mls/hr IV .[id number] [facility] Rx#:[id number] Oral 400 200 Output: Drainage 120 90 52 Abdomen 120 90 52 Void Amount 825 575 250 Other: Meal Lunch Percent of Meal Consumed 25% Feeding Ability Independent Urine Appearance Clear Clear Urine Color Straw Dark Yellow Urine Odor Normal Normal # Voids 1 Eye Eye exam: Present EOMI and PERRL ENT ENT exam: Present normal exam and normal oropharynx Neck Neck exam: Present full ROM and normal inspection; Absent lymphadenopathy or tenderness Respiratory Respiratory exam: Present normal respiratory exam and CTAB Cardiovascular Cardiovascular exam: Present normal rate and rhythm, RRR, +S1 and +S2; Absent JVD GI/Abdominal GI/Abdominal exam: Present normal bowel sounds (Good active bowel sounds), distended (Mild distention) and tenderness (Mild incisional tenderness) Extremities Exam Extremities exam: Present normal inspection and neurovascular intact Neurological Exam Neurological exam: Present CN II-XII intact, oriented X3 and reflexes normal; Absent motor sensory deficit Psychiatric Psychiatric exam: Present normal affect and normal mood Skin Skin exam: Present normal color A/P Assessment and plan (1) Primary appendiceal adenocarcinoma: Status: Acute (2) Barretts esophagus: Status: Acute Plan Advance to full liquid diet Cath urine for urine analysis Diflucan 100 mg daily Pyridium 200 mg twice daily Time Spent With Patient Time: Total time spent is greater than 50% in coordination of care (as documented) at patient's floor/unit and/or counseling patient:
[2022-04-11] MEDS ORDERED: MAGNESIUM SULFATE 4 GM/100 ML BAG IV ONE (12:00)
[2022-04-11] MEDS: FLUCONAZOLE 400 MG/200 ML BAG IV SCH (13:57)
[2022-04-11] MEDS: ATORVASTATIN 10 MG TABLET PO SCH (20:12)
[2022-04-11] MEDS: PHENAZOPYRIDINE 200 MG TABLET PO SCH (20:37)
[2022-04-11 21:50] LABS: Appearance,Urine CLEAR (Clear); Bilirubin,Urine Negative (Negative); Color,Urine YELLOW; Culture Indicated,Urine No; Glucose,Urine (UA) Negative (Negative); Ketones,Urine Negative (Negative); Leukocyte Esterase,Urine Negative /uL (Negative); Mucus,Urine FEW /hpf; Nitrate,Urine Negative (Negative); Protein,Urine Negative (Negative); Specific Gravity,Urine 1.015 (1.000-1.035); Urine Blood 0.03 mg/dL (Negative); Urine Hyaline Cast 10 /lph (0-2); Urine RBC 3 /hpf (0-3); Urine Squamous Epithelial Cell 3 /hpf (0-4); Urine WBC 5 /hpf (0-4)
[2022-04-11] MEDS: oxyCODONE HCL 5 MG TABLET PO PRN (22:52)
[2022-04-12] MEDS: METOCLOPRAMIDE 10 MG/2 ML VIAL IV SCH ×3 (00:04→11:16)
[2022-04-12] MEDS: ACETAMINOPHEN 650 MG/65 ML BAG IV SCH ×2 (05:01→11:13)
[2022-04-12] MEDS: ALBUTEROL SULFATE 200 PUFF INHALER INH SCH ×5 (05:02→20:09)
[2022-04-12] MEDS: 0.9 % SODIUM CHLORIDE 10 ML SYRINGE IV SCH ×2 (05:03→14:58)
[2022-04-12 06:38] LABS: Hematocrit 27.6 % (34.1-44.9); Hemoglobin 8.8 g/dL (11.2-15.7); Mean Cell Volume 81.4 fL (80.0-100.0); Mean Corpuscular HGB Conc 31.9 g/dL (31.0-36.0); Mean Platelet Volume 9.9 fL (7.4-10.4); Platelet Count 363 K/mcL (140-440); RBC 3.39 M/mcL (3.59-5.38); Red Cell Distribution Width 15.1 % (11.5-14.5); WBC 8.1 K/mcL (4.5-11.0)
[2022-04-12 06:53] LABS: Blood Urea Nitrogen 5 mg/dL (6-20); Calcium 8.8 mg/dL (8.6-10.4); Carbon Dioxide 28 mmol/L (22-30); Chloride 102 mmol/L (96-108); Glomerular Filtration Rate 85; Glucose 121 mg/dL (70-105)
[2022-04-12] MEDS: BISACODYL 10 MG SUPP.RECT PR SCH (08:17)
[2022-04-12] MEDS: OMEPRAZOLE 20 MG CAPSULE PO SCH ×2 (08:17→17:41)
[2022-04-12] MEDS: PHENAZOPYRIDINE 200 MG TABLET PO SCH ×2 (08:17→20:26)
[2022-04-12] MEDS: FLUCONAZOLE 400 MG/200 ML BAG IV SCH (08:21)
[2022-04-12] MEDS: 0.9 % SODIUM CHLORIDE 250 ML IV SCH (11:15)
[2022-04-12] MEDS: oxyCODONE HCL 5 MG TABLET PO PRN ×3 (12:53→22:06)
--- NOTE | 2022-04-12 13:28 | General Surgery Progress Note ---
SUBJECTIVE Subjective Patient information: Note initiated : 04/12/22 at 1:25 pm Service Date, if different from initiated Date: [] Patient: RockyFebruary a 52 y/o F admitted on 04/06/22 for Right Colectomy. Chief Complaint: [POD #6 Right Colectomy] Doing well, feels great, passing gas and had large BM. Tolerating diet well Principal diagnosis: Right colectomy Constitutional Vitals: Vital Signs Temp Pulse Resp BP Pulse Ox 97.1 F 75 18 153/90 98 04/12/22 12:08 04/12/22 12:08 04/12/22 12:08 04/12/22 12:08 04/12/22 12:08 Period Temp Pulse Resp BP Sys/Rockwell Pulse Ox Last 24 Hr 97.0 F-98.4 F 74-85 14-20 120-153/75-90 91-98 Intake and Output 04/11/22 04/12/22 04/12/22 21:59 05:59 13:59 Intake Total 591 313 65 Output Total 830 1100 320 Balance -239 -787 -255 Weight 171 lb 9 oz Intake & Output: Intake & Output 04/11/22 04/12/22 04/12/22 21:59 05:59 13:59 Intake Total 591 313 65 Output Total 830 1100 320 Balance -239 -787 -255 Weight 171 lb 9 oz Intake: Nourishment/Supplement quantity 226 (ml) IV 365 193 65 Dextrose 5%-Lactated Ringers 1, 0 128 000 ml @ 75 mls/hr IV .[id number] [facility] Rx#:[id number] Oral 120 Output: Drainage 85 Abdomen 85 Drainage 70 175 70 Abdomen 70 175 70 Void Amount 675 925 250 Other: Meal Lunch Breakfast Percent of Meal Consumed 50% 100% Nourishment/Supplement name Apple Ensure Clear Urine Appearance Clear Clear Clear Urine Color Dark Yellow [place] Bright Yellow Urine Odor Normal Normal Normal Stool Size Small Stool Color Brown Stool Consistency Soft # Voids 1 # Bowel Movements 1 Exam: Looks well, non toxic Respiratory Respiratory exam: Present normal respiratory exam Additional comments: no distress Cardiovascular Cardiovascular exam: Present RRR GI/Abdominal Additional comments: soft and non tender, non distended, dressing dry, drain non enteric Extremities Exam Additional comments: well perfused A/P Assessment and plan (1) Primary appendiceal adenocarcinoma: Status: Acute Plan POD #6 Right Colectomy Doing Well Regular Diet Resume Home Meds Time Spent With Patient Time: Total time spent is greater than 50% in coordination of care (as documented) at patient's floor/unit and/or counseling patient:
[2022-04-12] MEDS ORDERED: VENLAFAXINE 75 MG CAP.XL.24H PO SCH (14:15)
[2022-04-12] MEDS: DEXTROSE 5%-LR 1,000 ML IV SCH ×2 (14:57→22:16)
[2022-04-12] MEDS ORDERED: ACETAMINOPHEN 325 MG TABLET PO PRN (18:59)
[2022-04-12] MEDS: ATORVASTATIN 10 MG TABLET PO SCH (20:27)
[2022-04-13] MEDS: ALBUTEROL SULFATE 200 PUFF INHALER INH SCH ×3 (00:15→08:45)
[2022-04-13] MEDS: oxyCODONE HCL 5 MG TABLET PO PRN ×3 (01:51→10:19)
[2022-04-13] MEDS: OMEPRAZOLE 20 MG CAPSULE PO SCH (06:52)
[2022-04-13] MEDS: PHENAZOPYRIDINE 200 MG TABLET PO SCH (08:44)
[2022-04-13] MEDS: BISACODYL 10 MG SUPP.RECT PR SCH (08:45)
[2022-04-13] MEDS ORDERED: VENLAFAXINE 75 MG CAP.XL.24H PO SCH ×2 (09:00)
[2022-04-13] MEDS: FLUCONAZOLE 400 MG/200 ML BAG IV SCH (09:27)
--- NOTE | 2022-04-13 09:48 | General Surgery Progress Note ---
SUBJECTIVE Subjective Patient information: Note initiated : 04/13/22 at 9:45 am Service Date, if different from initiated Date: [] Patient: RockyFebruary 52 y/o F admitted on 04/06/22 for Right Colectomy. Chief Complaint: [POD #7 Right Colectomy] Doing well, no issues at this time, feels ready for discharge Principal diagnosis: Right colectomy Constitutional Vitals: Vital Signs Temp Pulse Resp BP Pulse Ox 96.6 F L 77 12 156/92 95 04/13/22 07:31 04/13/22 07:31 04/13/22 07:31 04/13/22 07:31 04/13/22 07:31 Period Temp Pulse Resp BP Sys/Rockwell Pulse Ox Last 24 Hr 96.6 F-98.7 F 63-88 12-18 130-156/77-92 94-98 Intake and Output 04/12/22 04/13/22 04/13/22 21:59 05:59 13:59 Intake Total 1000 240 Output Total 140 250 60 Balance 860 -10 -60 Weight 174 lb 4.8 oz Intake & Output: Intake & Output 04/12/22 04/13/22 04/13/22 21:59 05:59 13:59 Intake Total 1000 240 Output Total 140 250 60 Balance 860 -10 -60 Weight 174 lb 4.8 oz Intake: IV 1000 Dextrose 5%-Lactated Ringers 1, 1000 000 ml @ 75 mls/hr IV .[id number] [facility] Rx#:[id number] Oral 240 Output: Drainage 70 60 Abdomen 70 60 Drainage 70 50 Abdomen 70 50 Void Amount 200 Other: Meal Dinner [place], cookie Percent of Meal Consumed 75% 50% Feeding Ability Independent Independent Urine Appearance Clear Urine Color Bright Yellow Exam: Looks well, nontoxic, NAD Respiratory Respiratory exam: Present normal respiratory exam Additional comments: Non labored Cardiovascular Cardiovascular exam: Present RRR GI/Abdominal Additional comments: soft and non tender, non distended, midline incision looks good without issue Extremities Exam Additional comments: well perfused A/P Assessment and plan (1) Primary appendiceal adenocarcinoma: Assessment and plan: Post Right Colectomy Doing Well Home today Clinic follow up in the next 1-2 weeks Status: Acute Time Spent With Patient Time: Total time spent is greater than 50% in coordination of care (as documented) at patient's floor/unit and/or counseling patient:
--- NOTE | 2022-04-16 15:25 | Discharge Summary ---
DATE OF ADMISSION: 04/06/2022 DATE OF DISCHARGE: 04/13/2022 ADMITTING DIAGNOSIS: Appendiceal carcinoma with need for completion of right colectomy. DISCHARGE DIAGNOSIS: Appendiceal carcinoma with need for completion of right colectomy. PROCEDURE PERFORMED: Open right colectomy 04/06/2022. INDICATIONS FOR ADMISSION/HOSPITAL COURSE: The patient is a 52-year-old female who was seen several weeks prior to this for an episode of acute appendicitis. She was taken to the operating room and underwent laparoscopic appendectomy. Final pathology on that revealed a 1.5 cm goblet of adenocarcinoma of the appendix. Margins were negative, but given the concerns for occult regional phyllis tests as high as 30-40% and documented series, completion of right colectomy was recommended as standard of care. Risks, benefits, potential complications and alternative treatment options such as observational management and not undergoing surgery were discussed with her at length and she wished to undergo the procedure. The details of the operative procedure can be found in the separately dictated operative note, for reference. Patient underwent procedure on 04/06/2022 and in the subsequent days following she did well. By postop day 3-4 she was beginning to have gas and evidence of bowel function. Her NG tube was removed and her Pagan catheter had been removed. She was started on a clear liquid diet with which she did well and then she advanced to a regular diet, and to the point she was ready for discharge by 04/13/2022. DISPOSITION: To home with planned followup in clinic. IN-HOSPITAL COMPLICATIONS: None apparent. BW:jeannie Job ID: [id number] Doc ID: [id number] Ted Goldberg M.D.
== END 2022-04-13 13:07 | disposition home or self-care (01) | DRG 331 ==
LOC: ICU 07:01 → EDSTATUS 09:00 → MEDSUR 04-08 13:38
PROVIDERS: ADMIT Surgery Surgical Critical Care; ATTEND Surgery Surgical Critical Care